=== PATIENT | female | born 1975 | race African-American/Black ===

== ENCOUNTER 2018-08-04 16:42 | Emergency (ER) | payer BC ==
[2018-08-04 16:52] VITALS: BP 115/73; PULSE 94; TEMP 98.1; BMI 33.3
--- NOTE | 2018-08-04 17:16 | PDOC ---
History of Present Illness - General Chief Complaint: Cold Symptoms Stated Complaint: SENT BY PCP/X-RAY Time Seen by Provider: 08/04/18 16:55 - History of Present Illness Initial Comments: 08/04/18 17:14 43-year-old female without comorbidities presents for evaluation of 10 days of cough. She was seen by her primary doctor last week she was given a albuterol pump in the nasal spray and her symptoms have not resolved. She denies fever. She does complain of shortness of breath with exertion cough worse when laying flat and headache associated with her cough. Past History - Past Medical History Allergies/Adverse Reactions: Allergies Allergy/AdvReac Type Severity Reaction Status Date / Time No Known Allergies Allergy Verified 08/04/18 16:47 Home Medications: Ambulatory Orders Amox-Tr/K Cl [Augmentin - 875Mg Tablet] 1 tab PO BID #14 tablet 11/30/14 Azithromycin [Zithromax -] 250 mg PO UTDICT #6 tab 08/04/18 Guaifenesin Dm [Mucinex Dm -] 1 tab PO BID #60 tab.er.[id number] 08/04/18 COPD: No CHF: No - Immunization History Td Vaccination: Yes TDAP Vaccination: Yes Immunization Up to Date: Yes - Suicide/Smoking/Psychosocial Hx Smoking Status: Yes Smoking History: Never smoked Years of Tobacco Use: 0 Number of Cigarettes Smoked Daily: 10 Cigars Per Day: 0 Hx Alcohol Use: No Drug/Substance Use Hx: No Substance Use Type: None Review of Systems - Review of Systems Constitutional: No: Fever Respiratory: Yes: Cough, Orthopnea Neurological: Yes: Headache *Physical Exam - Vital Signs Last Vital Signs Temp Pulse Resp BP Pulse Ox 98.1 F 94 H 16 115/73 98 08/04/18 16:47 08/04/18 16:47 08/04/18 16:47 08/04/18 16:47 08/04/18 16:47 - Physical Exam Comments: 08/04/18 17:15 HEAD: NC/AT EYES: Conjuntiva clear Ears: Canals and TM's normal NOSE: No d/c THROAT: Moist mucous membrances, oral pharanx clear, uvula midline NECK: Supple without adenopathy CARDIAC: S1 S2 LUNGS: Coarse breath sounds diffusely without wheezing ABDOMEN: Soft NT ND MS: Full ROM in all joints without edema NEUROLOGIC: No gross sensory or motor deficits, NVID SKIN: Normal color and temperature no lesions or rashes Moderate Sedation - Procedure Monitoring Vital Signs: Procedure Monitoring Vital Signs Temperature 98.1 F 08/04/18 16:47 Pulse Rate 94 H 08/04/18 16:47 Respiratory Rate 16 08/04/18 16:47 Blood Pressure 115/73 08/04/18 16:47 O2 Sat by Pulse Oximetry (%) 98 08/04/18 16:47 Medical Decision Making - Medical Decision Making 08/04/18 17:15 Patient was urged to come to the emergency room by her primary care physician for chest x-ray. I will run a test and get a chest x-ray. I suspect pneumonia 08/04/18 17:27 No infiltrate I will treat her bronchitis with Zithromax and Mucinex have her follow-up with primary care physician. *DC/Admit/Observation/Transfer Diagnosis at time of Disposition: Bronchitis - Discharge Dispostion Disposition: HOME Condition at time of disposition: Stable Decision to Admit order: No - Referrals Referrals: Aden Emerson MD [Primary Care Provider] - - Patient Instructions Printed Discharge Instructions: Acute Bronchitis, DI for Acute Bronchitis Additional Instructions: Return to the emergency room for worsening symptoms. Follow-up with your primary care physician one to 2 days for further evaluation and treatment options. Please take the antibiotics as directed. Use the Mucinex as directed for cough. Follow-up with her primary care physician in one to 2 days return to the emergency room for worsening symptoms. - Post Discharge Activity
== END 2018-08-04 17:30 | disposition home or self-care (01) ==
LOC: JERFT 16:42
DX: J40 Bronchitis, not specified as acute or chronic (principal)
CPT/HCPCS: 71046-TC-FY; 84703; 99281-25

== ENCOUNTER 2019-06-21 17:29 | Emergency (ER) | payer BC ==
--- NOTE | 2019-06-21 19:32 | PDOC ---
Documentation entered by Emily Ayala SCRIBE, acting as scribe for Gogo Brown MD. Gogo Brown MD: This documentation has been prepared by the Lucy cuba Adrianna, SCRIBE, under my direction and personally reviewed by me in its entirety. I confirm that the documentation accurately reflects all work, treatment, procedures, and medical decision making performed by me. History of Present Illness - General Chief Complaint: Foreign Body (FB) Stated Complaint: TAMPON IN VAGINA History Source: Patient Exam Limitations: No Limitations - History of Present Illness Initial Comments: The patient is a 43 year old female, with no significant PMH, presents to the ED for evaluation of retained tampon for one week. Patient notes that last monday, she placed a tampon in. She couldnt recall if she took it out that day , but the following day felt some discomfort. Since Monday, she endorses some mild discomfort with a slight foul odor. Patient reports some subjective fevers yesterday, and became concerned for toxic shock syndrome so she came to the ED to have the tampon removed. Denies any other complaints at this time. PAST MEDICAL HISTORY: no significant history PAST SURGICAL HISTORY: no significant history FAMILY HISTORY: no pertinent history SOCIAL HISTORY: Pt lives with family and is employed. No toxic habits. MEDICATIONS: reviewed ALLERGIES: As per nursing notes ROS General: +Subjective fevers yesterday. No chills, no weakness, no weight loss HEENT: No change in vision. No sore throat,. No ear pain CardioVascular: No chest pain or shortness of breath Respiratory:No cough, or wheezing. Gastrointestinal: no nausea, vomiting, diarrhea or constipation, No rectal bleeding Genitourinary: No dysuria, hematuria, or frequency Pelvic: +Retained tampon with mild discomfort and slight four odor. Musculoskeletal: No joint or muscle pain or swelling Neurologic: No headache, vertigo, dizziness or loss of consciousness Psychiatric: nor depression Skin: No rashes or easy bruising Endocrine: no increased thirst or abnormal weight change Allergic: no skin or latex allergy All other systems reviewed and normal PE GENERAL: The patient is awake, alert, and fully oriented, in no acute distress. HEAD: Normal with no signs of trauma. EYES: Pupils equal, round and reactive to light, extraocular movements intact, sclera anicteric, conjunctiva clear. EXTREMITIES: Normal range of motion, no edema. PELVIC: +Retained tampon visible on speculum exam. No tenderness of adexa. NEUROLOGICAL: Normal speech, normal gait. PSYCH: Normal mood, normal affect. SKIN: Warm, Dry, normal turgor, no rashes or lesions noted. Assessment and plan: This is a 43-year-old female who comes in complaining of a retained tampon. Patient did have a retained tampon which was removed without difficulty. Otherwise patient has normal vitals there is no fever and patient is well-appearing. Patient denies any abdominal pain or any other complaints. Patient discharged home. 06/21/19 19:35 Past History - Past Medical History Allergies/Adverse Reactions: Allergies Allergy/AdvReac Type Severity Reaction Status Date / Time No Known Allergies Allergy Verified 08/04/18 16:47 Home Medications: Ambulatory Orders NK [No Known Home Medication] 06/21/19 COPD: No CHF: No - Immunization History Td Vaccination: Yes TDAP Vaccination: Yes Immunization Up to Date: Yes - Psycho Social/Smoking Cessation Hx Smoking Status: Yes Smoking History: Never smoked Years of Tobacco Use: 0 Number of Cigarettes Smoked Daily: 10 Cigars Per Day: 0 Hx Alcohol Use: No Drug/Substance Use Hx: No Substance Use Type: None Discharge - Discharge Information Problems reviewed: Yes Clinical Impression/Diagnosis: Retained tampon Qualifiers: Encounter type: initial encounter Qualified Code(s): T19.2XXA - Foreign body in vulva and vagina, initial encounter Condition: Good Disposition: HOME - Admission No - Follow up/Referral Referrals: Roderick Worley MD [Primary Care Provider] - - Patient Discharge Instructions Additional Instructions: Return to the emergency department immediately with ANY new, persistent or worsening symptoms. Continue any medications as previously prescribed by your physician. You should follow up with your primary doctor as soon as possible regarding today's emergency department visit. . Please make sure your doctor reviews the results of your emergency evaluation. Thank you for coming to the Emergency Department today for your care. It was a pleasure to see you today. Please note that your evaluation is INCOMPLETE until you follow-up with your doctor. - Post Discharge Activity
[2019-06-21 19:37] VITALS: BP 146/100; PULSE 97; TEMP 97.6; BMI 37.4
== END 2019-06-21 19:38 | disposition home or self-care (01) ==
LOC: FER 17:29
DX: T19.2XXA Foreign body in vulva and vagina, initial encounter (principal); X58.XXXA Exposure to other specified factors, initial encounter; Y93.89 Activity, other specified; Y92.89 Other specified places as the place of occurrence of the external cause
CPT/HCPCS: 99282-25